=== PATIENT | male | born 1960 | race Hispanic/Latino ===

== ENCOUNTER 2019-11-17 18:17 | Emergency (ER) | payer OTHER ==
[~2019-11-17] VITALS: Ht 190.5 cm; Wt 108.9 kg
--- NOTE | 2019-11-17 18:34 | Emergency Department Note ---
History of Present Illnes History of Present Illness Chief Complaint: right arm pain History of Present Illness This is a 59 year old male, with no significant past medical history, who was carrying a stove, and injured his right upper extremity, just prior to arrival. Patient states that he felt a pop/pulling in the area just above the right medial antecubital fossa. There is now an area of swelling and tenderness in this location. He denies any previous history of injury to the right upper extremity. Patient denies any numbness, tingling, or weakness of the right upper extremity. 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 Onset (how long ago): hour(s) (1.5) Location: RUE Quality: achying painful Radiation: Reports non-radiation; Denies back, Denies neck Severity: moderate Onset quality: sudden Duration (how long): hour(s) (1.5) Timing of current episode: constant Progression: unchanged Chronicity: new Context: Reports trauma/injury (see HPI) Relieving factors: none Exacerbating factors: movement (pain with extension of RUE;) Associated symptoms: Denies fever/chills, Denies nausea/vomiting, Denies weakness Treatments prior to arrival: none Risk factors: Age Past Medical/Family History Physician Review I have reviewed the patient's past medical and family history. Any updates have been documented here. Past Medical History Recent Fever: No Clinical Suspicion of Infectio: No New/Unexplained Change in Ment: No Past Medical History: Kidney Stones Past Surgical History: Cholecysctectomy Social History Smoking Cessation: Never Smoker Alcohol Use: None Any Illegal Drug Use: No TB Exposure/Symptoms: No Physically hurt or threatened: No Family History Family history of heart diseas: No Other Any Pre-Existing Lines (PICC,: No Is patient up to date on immun: No Review of Systems Review of Systems Constitutional: Reports no symptoms; Denies chills, Denies fever EENTM: Reports no symptoms Cardiovascular: Denies chest pain, Denies palpitations Respiratory: Denies cough, Denies dyspnea Gastrointestinal: Denies nausea, Denies vomiting Genitourinary: Reports no symptoms Musculoskeletal: Reports muscle pain (RUE); Denies back pain, Denies neck pain Integumentary: Denies change in color, Denies rash Neurological: Reports no symptoms Psychological: Reports no symptoms Review of other systems: All other systems negative Physical Exam Related Data Allergies: Coded Allergies: No Known Allergies (Unverified , 11/17/19) Vital signs reviewed: Yes Physical Exam CONSTITUTIONAL Constitutional: Present well-developed, Present well-nourished; Absent distressed, Absent ill appearing HENT HENT: Present normocephalic, Present atraumatic, Present oropharynx clear/moist, Present nose normal HENT L/R: Present left ext ear normal, Present right ext ear normal EYES Eyes: Reports PERRL, Reports conjunctivae normal NECK Neck: Present ROM normal PULMONARY Pulmonary: Present effort normal, Present breath sounds normal CARDIOVASCULAR Cardiovascular: Present regular rhythm, Present heart sounds normal, Present capillary refill normal, Present normal rate GASTROINTESTINAL GENITOURINARY SKIN Skin: Present warm, Present dry; Absent erythema MUSCULOSKELETAL Musculoskeletal: Present edema, Present tenderness (area of RUE distal bicep muscle/tendon edematous, deformed and ttp; increased pain with efforts to extend the RUE; no ttp of elbow or olecranon, no crepitus; ) NEUROLOGICAL Neurological: Present alert, Present oriented x 3, Present no gross motor or sensory deficits PSYCHOLOGICAL Psychological: Present mood/affect normal, Present judgement normal Results Imaging Imaging results reviewed: Yes Impressions [place] [id number] Patient Name: BAKARI BHAKTA MR #: [id number] : 1960 Age/Sex: 59/M Req #: [id number] Adm Physician: Ordered by: ÁNGEL YUSUF MD Report #: [id number] Location: [facility] Room/Bed: Procedure: [id number] HOPD/HUMERUS 2VIEW RT -HOPD Exam Date: 11/17/19 Exam Time: 1900 REPORT STATUS: Signed X-ray 3 views of the elbow. 2 views of the humerus. HISTORY: Pain. COMPARISON: None available. FINDINGS: HUMERUS: No acute fracture or dislocation. There are mild to moderate degenerative changes of the glenohumeral and acromioclavicular joints. No focal soft tissue abnormality. The partially imaged right hemithorax is clear. Elbow: No acute fracture or dislocation. No focal soft tissue abnormality. IMPRESSION: No acute radiographic abnormality of the humerus and elbow. Signed by: Roman Vu MD on 11/17/2019 7:44 PM Dictated By: ROMAN VU MD 43 Transcribed By: ANIBAL on 11/17/191943 COPY TO: ÁNGEL YUSUF MD~ Assessment & Plan Medical Decision Making MDM - Use the sling for right arm, for comfort, for the next 5-7 days, or until follow-up with Orthopedics. - Apply ice to the area of injury for 15 - 20 minutes 3-4x/day, over the next several days. - Flex and extend the right upper extremity several times throughout the day, to keep the right elbow from getting stiff. - You may take Ibuprofen 200 mg - 3 tabs together every 6-8 hours, as needed for pain and inflammation, or you may take Aleve - per package instructions. - Avoid lifting anything more than 5 lbs, to prevent furhter injury to the right upper arm. - Follow-up with Orthopedics next week, for further evaluation of the right upper arm injury. Assessment & Plan Final Impression: (1) Biceps tendon rupture (2) Upper extremity pain Depart Disposition: HOME, SELF-CARE ÁNGEL YUSUF MD Nov 17, 2019 18:34
--- NOTE | 2019-11-17 19:48 | Diagnostic Imaging Report ---
X-ray 3 views of the elbow. 2 views of the humerus. HISTORY: Pain. COMPARISON: None available. FINDINGS: HUMERUS: No acute fracture or dislocation. There are mild to moderate degenerative changes of the glenohumeral and acromioclavicular joints. No focal soft tissue abnormality. The partially imaged right hemithorax is clear. Elbow: No acute fracture or dislocation. No focal soft tissue abnormality. IMPRESSION: No acute radiographic abnormality of the humerus and elbow. Signed by: Tiny Argueta MD on 11/17/2019 7:44 PM
== END 2019-11-17 20:15 | disposition home or self-care (01) ==
LOC: FSED 19:00
DX: S46.211A Strain of muscle, fascia and tendon of other parts of biceps, right arm, initial encounter (principal); X50.0XXA Overexertion from strenuous movement or load, initial encounter; Z87.442 Personal history of urinary calculi
CPT/HCPCS: 99283